=== PATIENT | female | born 1940 | race Caucasian/White ===

== ENCOUNTER 2016-12-08 23:34 | Emergency (ER) | payer OTHER ==
[~2016-12-08] VITALS: Ht 175.3 cm; Wt 70.3 kg
--- NOTE | 2016-12-08 23:58 | NUR ---
URINE SAMPLE OBTAINED.
--- NOTE | 2016-12-09 00:04 | NUR ---
PT AMBULATED TO BED #10 WITH A STEADY GAIT.
[2016-12-09 00:24] LABS: APPEARANCE,URINE CLEAR (CLEAR); BILIRUBIN,URINE NEGATIVE (NEGATIVE); BLOOD, URINE NEGATIVE Ery/uL (NEGATIVE); COLOR,URINE YELLOW (YELLOW); KETONES,URINE NEGATIVE (NEGATIVE); LEUKOCYTE ESTERASE ,URINE 1+ (NEGATIVE); NITRITE, URINE NEGATIVE (NEGATIVE); PH,URINE 6.5 (5.0-8.0); PROTEIN,URINE NEGATIVE (NEGATIVE); UGLUCOSE NEGATIVE (NEGATIVE); UROBILINOGEN,URINE 0.2 EU/dL (0.2)
[2016-12-09 00:55] LABS: ADD URINE CULTURE YES; BACTERIA,URINE None seen /HPF (None Seen); RBC,URINE 0-2 /HPF (0-2); SQUAMOUS EPITHELIAL CELL,UR Moderate /HPF (None Seen)
--- NOTE | 2016-12-09 01:45 | NUR ---
PT WAS MOVED TO THE OB ROOM/ ER 21.
--- NOTE | 2016-12-09 01:50 | NUR ---
PELVIC EXAM DONE.
--- NOTE | 2016-12-09 02:10 | NUR ---
PT AMBULATED TO THE BATHROOM WITH A STEADY GAIT.
--- NOTE | 2016-12-09 03:20 | NUR ---
PT APPEARS TO BE RESTING COMFORTABLY WITH NO S/S OF PAIN OR DISTRESS. PT STILL IS MAKING FREQUENT TRIPS TO THE BATHROOM.
--- NOTE | 2016-12-09 03:30 | NUR ---
DR. BURNETT IS AT THE BEDSIDE SPEAKING TO THE PT.
[2016-12-09] MEDS ORDERED: ACETAMINOPHEN ES 500 MG TABLET ONE (03:53)
[2016-12-09] MEDS ORDERED: ACETAMINOPHEN 325 MG TABLET PO ONE (04:00)
[2016-12-09 04:03] VITALS: BP 148/78
== END 2016-12-09 04:00 | disposition home or self-care (01) ==
LOC: ER 23:35
DX: R30.0 Dysuria (principal); I10 Essential (primary) hypertension
CPT/HCPCS: 81000-TC; 87086-TC; 87210-TC; A4606; Z7610